=== PATIENT | female | born 1960 | race Caucasian/White ===

== ENCOUNTER 2017-11-01 14:01 | Outpatient (CLI) | payer MEDICARE, MEDICAID ==
[~2017-11-01 14:01] MED LIST: ATOR20TA PO; CLON-527 PO; DEXL60CA3 PO; DULO-31 PO; ESTR0.5T; FURO40TA4 PO; GABA-338 PO; HYDR-3972 PO; LOP25T PO; LYR25C PO; METO50TA7 PO; POTA20LI CORPAK; PROG200C7 PO; SITA1TAB10 PO; THY60T PO; ZOLP6.2526 PO
== END 2017-11-01 23:59 | disposition home or self-care (01) ==
LOC: CARD DIAG 14:01
PROVIDERS: ATTEND Registered Nurse
DX: I08.0 Rheumatic disorders of both mitral and aortic valves (principal); I50.9 Heart failure, unspecified
CPT/HCPCS: 93306

== ENCOUNTER 2020-10-24 05:09 | Day surgery (SDC) | payer MEDICARE, MEDICAID ==
[2020-10-17 15:07] LABS: BASOPHILS # (AUTO) 0.1 X10'3 (0-0.2); BASOPHILS % (AUTO) 1.1 % (0-1); EOSINOPHILS # (AUTO) 0.3 X10'3 (0-0.9); EOSINOPHILS % (AUTO) 2.5 % (0-6); LYMPHOCYTES # (AUTO) 2.9 X10'3 (1.1-4.8); LYMPHOCYTES % (AUTO) 28.4 % (21-51); MEAN CORPUSCULAR HEMOGLOBIN 29.3 PG (27.0-31.0); MEAN CORPUSCULAR HGB CONC 33.2 g/dL (33.0-36.5); MEAN CORPUSCULAR VOLUME 88.3 FL (78-98); MEAN PLATELET VOLUME 9.5 FL (7.4-10.4); MONOCYTES # (AUTO) 1.1 X10'3 (0-0.9); MONOCYTES % (AUTO) 10.7 % (2-12); NEUTROPHILS # (AUTO) 5.7 X10'3 (1.8-7.7); NEUTROPHILS % (AUTO) 57.3 % (42-75); PRE OP HEMATOCRIT 44.8 % (35.0-45.0); PRE OP HEMOGLOBIN 14.9 g/dL (12.0-16.0); PRE OP PLATELET COUNT 295 X10'3 (140-440); RED BLOOD COUNT 5.08 X10'6 (4.20-5.60); RED CELL DISTRIBUTION WIDTH 14.6 % (11.5-14.5)
[2020-10-17 15:22] LABS: ALBUMIN 3.8 G/DL (3.4-5.0); ALBUMIN/GLOBULIN RATIO 1.1 (1.1-1.5); ALKALINE PHOSPHATASE 91 IU/L (46-116); BLOOD UREA NITROGEN 13 MG/DL (7-18); BUN/CREATININE RATIO 12.3 (6.6-38.0); CALCIUM 8.6 MG/DL (8.5-10.1); CHLORIDE 104 MMOL/L (99-107); CREATININE 1.06 MG/DL (0.40-0.90); PRE OP ALT 18 U/L (30-65); PRE OP ANION GAP 7 (8-16); PRE OP AST 9 U/L (10-37); PRE OP BILIRUB, TOTAL 0.4 MG/DL (0.0-1.0); PRE OP GLUCOSE 178 MG/DL (70-104); PRE OP POTASSIUM 4.1 MMOL/L (3.4-5.1); PRE OP SODIUM 142 MMOL/L (135-145); TOTAL CARBON DIOXIDE 31.1 MMOL/L (24-32); TOTAL PROTEIN 7.3 G/DL (6.4-8.2); eGFR 53 ML/MIN
[~2020-10-24] VITALS: Ht 172.7 cm; Wt 134.9 kg
[2020-10-24] VITALS (9 sets, daily range): BP systolic 120–140; BP diastolic 75–88
[~2020-10-24 05:09] MED LIST changes: +ALBU18HF2 INH; +ASPI-1053 PO; -ATOR20TA PO; +ATR0.5NEB NEB; +BACL10TA2 PO; +BUPR300T86 PO; +CETI10TA15 PO; -CLON-527 PO; -DEXL60CA3 PO; -DULO-31 PO; -ESTR0.5T; +FLUT16SP26 BOTHNARES; +FLUT1BLS4 INH; -GABA-338 PO; -HYDR-3972 PO; +IBUP-1985 PO; +LANTUS SQ; +LIDO30CR23 TOP; +LISI-604 PO; +METF500T PO; -METO50TA7 PO; +ONDA8TAB13 SL; +PANT40TA54 PO; -POTA20LI CORPAK; +POTA20LI5 CORPAK; +PRAV80TA3 PO; -PROG200C7 PO; -SITA1TAB10 PO; -THY60T PO; -ZOLP6.2526 PO; +ZOLP6.2539 PO; +ringers solution, lacted 1,000 ML IV SCH
[2020-10-24] MEDS ORDERED: DOCUMENT DATE & TIME OF BETA-BLOCKER PO ONE (05:30)
[2020-10-24] MEDS ORDERED: famotidine 20mg tablet PO ONE (05:30)
[2020-10-24] MEDS ORDERED: albuterol 2.5 MG/3 ML nebule NEB ONE (05:30)
[2020-10-24] MEDS ORDERED: ceFAZolin inj. 3,000 MG in normal saline 100ml IV soln 100 ML IV ONE (05:30)
[2020-10-24] MEDS ORDERED: LIDOcaine 1% (10mg/ml) 2ml vial ONE (05:50)
[2020-10-24] MEDS ORDERED: BUPIVAcaine/PF 2.5mg/ml (0.25%) 10ml vial ONE (06:44)
[2020-10-24] MEDS ORDERED: LIDOcaine 0.5% (5mg/ml) 50ml vial ONE (06:44)
[2020-10-24] MEDS ORDERED: BUPIVAcaine/PF 2.5mg/ml (0.25%) 10ml vial IJ ONE (07:20)
[2020-10-24] MEDS ORDERED: meperidine/PF 25mg/ml syringe IV PRN ×3 (07:25)
[2020-10-24] MEDS ORDERED: HYDROmorphone/PF 0.2 MG/ML SYRINGE IV PRN ×2 (07:25)
[2020-10-24] MEDS ORDERED: acetaminophen 1,000mg/100ml IV 100 ML IV PRN (07:25)
[2020-10-24] MEDS ORDERED: labetalol 20mg/4ml (5mg/ml) syringe IV PRN (07:25)
[2020-10-24] MEDS ORDERED: ringers solution, lacted 1,000 ML IV SCH (07:25)
[2020-10-24] MEDS ORDERED: ondansetron/PF 4mg/2ml inj IV PRN (07:25)
[2020-10-24] MEDS ORDERED: hydrALAZINE 20mg/ml inj. IV PRN (07:25)
[2020-10-24] MEDS ORDERED: proCHLORperazine 10 MG/2 ml inj IV PRN (07:25)
[2020-10-24] MEDS ORDERED: fentaNYL/PF 50MCG/1 ML 2ML syringe ONE (08:02)
[2020-10-24] MEDS ORDERED: midazolam 2 mg/2 ml injection ONE (08:03)
[2020-10-24] MEDS ORDERED: propofol inj 20 ML IV ONE ×2 (08:19)
[2020-10-24] MEDS ORDERED: sodium bicarbonate (8.4%) inj. 1 MEQ/ML ML ONE (08:19)
--- NOTE | 2020-10-24 09:00 | NUR ---
Received from OR via ROD , accompanied by Anesthesiologist DAVI and report given by Anesthesiolgist. PATIENT WITH 20G PIV IN RIGHT UE RUNNING LRA T 100. DENIES PAIN. LEFT WRIST SPLINT IS INTACT, NO DRAINAGE PRESNET + CAP REFILL. Addendum: 10/24/20 at 0907 by Larry Colorado RN, RN Amended: Links added.
[2020-10-24] MEDS ORDERED: HYDROcodone/acetaminophen 10/325mg tab PO ONE (10:05)
--- NOTE | 2020-10-24 10:10 | NUR ---
PATIENT VERBALIZED UNDERSTANDING, OPPORTUNITY TO ASK QUESTIONS GIVEN AND PATIENT COMFORTABLE WITH DC. IV TAKEN OUT WITHOUT COMPLICATION. PATIENT HAS MET ALL DC CRITERIA FOR DC HOME. I HAVE REVIEWED D/C INSTRUCTIONS WITH PATIENT. TAKEN OUT VIA WHEELCHAIR WHERE PATIENT WAS TAKEN HOME WITH ALL BELONGINGS. FAMILY GAVE PATIENT TRANSPORT HOME. TOOK 2 [facility] PRIOR TO DC AND WAS REINSTRUCTED REGARDING ELEVATION Addendum: 10/24/20 at 1015 by Larry Colorado RN, RN Amended: Links added.
--- NOTE | 2020-10-24 10:42 | NUR ---
EMPHASIZED USE OF CPAP FOR 24 HOURS WHEN AT HOME. PATIENT ASKING IF SHE SHOULD TAKE HER AMBIEN WHEN SHE GETS HOME TO HELP HER SLEEP. I INSTRUCTED THAT WITH NARCOTICS IN HER SYSTEM AND ANESTHESIA TODAY THAT IT WOULD NOT BE ADVISABLE TO TAKE ATIVAN ADDITIONALLY AT THIS TIME. INSTRUCTED THAT ANY TIME SHE IS NOT UP AND ACTIVELY MOVING THAT SHE NEEDS TO BE ON HER BIPAP/CPAP. PATIENT DOES AGREE TO COMPLY WITH THIS REQUEST. JUANCARLOS VILLALBA PRESENT TO HEAR DISCUSSION WITH PATIENT.
== END 2020-10-24 10:10 | disposition home or self-care (01) ==
LOC: PAS 05:09
PROVIDERS: ATTEND Orthopaedic Surgery Hand Surgery
DX: M18.12 Unilateral primary osteoarthritis of first carpometacarpal joint, left hand (principal); Z20.822 Contact with and (suspected) exposure to COVID-19; E11.40 Type 2 diabetes mellitus with diabetic neuropathy, unspecified; J44.9 Chronic obstructive pulmonary disease, unspecified; G43.909 Migraine, unspecified, not intractable, without status migrainosus; M81.0 Age-related osteoporosis without current pathological fracture; Z95.0 Presence of cardiac pacemaker; F17.210 Nicotine dependence, cigarettes, uncomplicated; G47.33 Obstructive sleep apnea (adult) (pediatric); I48.91 Unspecified atrial fibrillation; I11.0 Hypertensive heart disease with heart failure; I50.9 Heart failure, unspecified; I42.9 Cardiomyopathy, unspecified; E66.01 Morbid (severe) obesity due to excess calories; Z68.42 Body mass index [BMI] 45.0-49.9, adult; F41.9 Anxiety disorder, unspecified; F32.9 Major depressive disorder, single episode, unspecified; Z79.899 Other long term (current) drug therapy; Z90.710 Acquired absence of both cervix and uterus; Z98.890 Other specified postprocedural states; Z79.84 Long term (current) use of oral hypoglycemic drugs; Z88.5 Allergy status to narcotic agent; Z86.14 Personal history of Methicillin resistant Staphylococcus aureus infection
CPT/HCPCS: 25310; 25447; 36415; 80053; 82948; 85025; 87635; J0131; J0690; J1170; J2001; J2175; J2250; J2704; J3010; J3490; J7120; A4215; A4618; A7000